=== PATIENT | female | born 1995 | race Caucasian/White ===

== ENCOUNTER 2017-03-25 18:44 | Outpatient (CLI) | payer OTHER ==
[~2017-03-25] VITALS: Ht 154.9 cm; Wt 61.0 kg
[2017-03-25 19:03] VITALS: Ht 154.9 cm; Wt 61.0 kg
[2017-03-25] MEDS ORDERED: CALC-5 PO (19:03)
[2017-03-25] MEDS ORDERED: PREN-47 PO (19:03)
[2017-03-25] MEDS ORDERED: FER325 PO (19:03)
[2017-03-25] MEDS ORDERED: FOLI-49 PO (19:03)
[2017-03-25 19:04] VITALS: BP 112/65; PULSE 145; RESP 18
[2017-03-25] MEDS ORDERED: LACTATED RINGER'S 1,000 ML IV ONE (20:30)
[2017-03-25 21:00] LABS: ABNORMAL IP MESSAGE 1; BASOPHILS % 0.2 % (0.0-2.0); EOSINOPHILS % 0.1 % (0.0-7.0); HEMATOCRIT 35.9 % (37.0-47.0); HEMOGLOBIN 11.9 g/dl (12.0-16.0); LYMPHOCYTES # 0.9 10^3/ul (0.8-2.9); LYMPHOCYTES % 7.2 % (18.0-55.0); MEAN CORPUSCULAR HEMOGLOBIN 29.2 pg (29.0-33.0); MEAN CORPUSCULAR HGB CONC 33.1 g/dl (32.0-37.0); MEAN PLATELET VOLUME 13.2 fl (7.4-10.4); MONOCYTE # 0.6 10^3/ul (0.3-0.9); MONOCYTES % 4.9 % (0.0-13.0); NEUTROPHIL # 10.9 10^3/ul (1.6-7.5); PLATELET COUNT 127 10^3/UL (140-415); RED BLOOD COUNT 4.08 10^6/ul (4.20-5.40); RED CELL DISTRIBUTION WIDTH 13.7 % (11.5-14.5); WHITE BLOOD COUNT 12.5 10^3/ul (4.8-10.8)
[2017-03-25 21:01] LABS: POSITIVE DIFF @See below
[2017-03-25 21:13] LABS: ADD UMIC YES; UR ASCORBIC ACID 40 mg/dL (NEGATIVE); UR BACTERIA FEW /HPF (NONE SEEN); UR BILIRUBIN (Dip) NEGATIVE (NEGATIVE); UR BLOOD (Dip) NEGATIVE (NEGATIVE); UR CLARITY CLOUDY (CLEAR); UR COLOR YELLOW (YELLOW); UR GLUCOSE (Dip) NEGATIVE (NEGATIVE); UR KETONES (Dip) 2+ mg/dL (NEGATIVE); UR LEUKOCYTE ESTERASE (Dip) 2+ Leu/ul (NEGATIVE); UR MUCUS MODERATE /HPF (NONE SEEN); UR NITRITE (Dip) NEGATIVE (NEGATIVE); UR RBC 2 /HPF (0-5); UR SPECIFIC GRAVITY (Dip) 1.017 (1.003-1.030); UR SQUAMOUS EPITHELIAL CELL MANY /HPF (FEW); UR TOTAL PROTEIN (Dip) NEGATIVE (NEGATIVE); UR UROBILINOGEN (Dip) NEGATIVE (NEGATIVE)
[2017-03-25] MEDS ORDERED: CEFAZOLIN 2 GM/50 ML (PMX) 50 ML IVPB ONE (22:00)
[2017-03-25] MEDS ORDERED: ACETAMINOPHEN 1000MG/100ML IV 100 ML IVPB ONE (22:00)
--- NOTE | 2017-03-26 00:09 | PN ---
Triage Information Date/Time Mar 26, 2017 Reason for visit: Uterine contractions Weeks of Gestation 36w 2d /Para 2/0 Diabetes: none Hypertention: none Additional information PMHx: none. PSHx: none. NKDA. Objective Vital Signs Date Time Temp Pulse Resp B/P Pulse Ox O2 Delivery O2 Flow Rate FiO2 03/25/17 19:04 100.0 145 18 112/65 98 Room Air Intake and Output 03/25/17 03/25/17 03/26/17 15:00 23:00 07:00 Intake Total 1150 ml Balance 1150 ml Heart Rate: 150's Heart Rate Comments With good accels and no decels. Contractions: None Results/Medications Result Diagram: 03/25/172024 Results 24 hrs Laboratory Tests Test 03/25/17 20:25 White Blood Count 12.5 H Red Blood Count 4.08 L Hemoglobin 11.9 L Hematocrit 35.9 L Mean Corpuscular Volume 88.0 Mean Corpuscular Hemoglobin 29.2 Mean Corpuscular Hemoglobin Concent 33.1 Red Cell Distribution Width 13.7 Platelet Count 127 L Mean Platelet Volume 13.2 H Neutrophils % 87.0 H Lymphocytes % 7.2 L Monocytes % 4.9 Eosinophils % 0.1 Basophils % 0.2 Nucleated Red Blood Cells % 0.0 Neutrophils # 10.9 H Lymphocytes # 0.9 Monocytes # 0.6 Eosinophils # 0.0 Basophils # 0.0 Nucleated Red Blood Cells # 0.0 Urine Color YELLOW Urine Clarity CLOUDY A Urine pH 6.0 Urine Specific [place] 1.017 Urine Ketones 2+ H Urine Nitrite NEGATIVE Urine Bilirubin NEGATIVE Urine Urobilinogen NEGATIVE Urine Leukocyte Esterase 2+ H Urine Microscopic RBC 2 Urine Microscopic WBC 12 H Urine Squamous Epithelial Cells MANY A Urine Bacteria FEW A Urine Mucus MODERATE Urine Hemoglobin NEGATIVE Urine Glucose NEGATIVE Urine Total Protein NEGATIVE Disposition: Discharge Assessment/Plan A: IUP at 36w 2d. Maternal and tachycardia. UTI. P: IV hydration. IV Ancef x 1. IV Tylenol x 1. After all of the above the pt's heart rate went from 140's to 110 bpm. Home with Rx for Macrobid. Urine cx. DIO PFEIFFER MD Mar 26, 2017 00:09
--- NOTE | 2017-03-26 00:31 | TRIAGE ---
OB Triage Datetime Report Generated by CPN: 03/26/2017 00:31 Datetime: 03/25/2017 23:00 Labor Evaluation Frequency: 7-8 Monitor Mode: External Duration (sec)2399: 60-70 Pattern: Normal: <= 5 Contractions in 10 Minutes Heart Rate FHR Baseline Rate: 155 Monitor Mode: External US FHR Baseline Changes: No Baseline Change Variability: Moderate 6-25 bpm Accelerations: 15X15 Datetime: 03/25/2017 22:22 Pain Assessment Pain Scale: 2 Pain Presence: Intermittent Pain Type: Cramping Pain Location: Back Pain Goal: 0 Pain Relief Measures: Comfort Measures Pain Assessment Comments: pt. states she feels 'better' and isn't really feeling uterine contracti ons anymore. pt. appears comfortable, does not desire and verbalize any needs at this time Datetime: 03/25/2017 22:00 Labor Evaluation Frequency: 8-9 Monitor Mode: External Duration (sec)2399: 60-80 Pattern: Normal: <= 5 Contractions in 10 Minutes Heart Rate FHR Baseline Rate: 160 Monitor Mode: External US FHR Baseline Changes: No Baseline Change Variability: Moderate 6-25 bpm Accelerations: 15X15 Decelerations: None Datetime: 03/25/2017 21:00 Labor Evaluation Frequency: 4-6 Monitor Mode: External Duration (sec)2399: 50-80 Pattern: Normal: <= 5 Contractions in 10 Minutes Heart Rate FHR Baseline Rate: 160 Monitor Mode: External US FHR Baseline Changes: No Baseline Change Variability: Moderate 6-25 bpm Accelerations: 15X15 Decelerations: Variable Datetime: 03/25/2017 20:00 Labor Evaluation Frequency: 4-8 Monitor Mode: External Duration (sec)2399: 60-80 Pattern: Normal: <= 5 Contractions in 10 Minutes Heart Rate FHR Baseline Rate: 160 Monitor Mode: External US FHR Baseline Changes: No Baseline Change Variability: Moderate 6-25 bpm Accelerations: 15X15 Decelerations: Variable Datetime: 03/25/2017 19:40 Monitor Mode: Palpation Resting Tone [place]: Relaxed Datetime: 03/25/2017 19:39 Vaginal Exam Dilatation (cms): 1.0 Effacement (%): 30 Station: -3 Exam By: jyothi rico Vaginal Bleeding: None Cervix, Consistency: Moderate Cervix, Position: Posterior Presentation 'A': Cephalic Datetime: 03/25/2017 19:32 Stage of : OB Triage Maternal Assessment Level of Consciousness: Fully Conscious Headache: Denies Blurred Vision: No Respiratory Effort: Unlabored; Regular Rhythm; Equal Expansion Nausea/Vomiting: Denies RUQ Epigastric Pain: Denies Facial Edema: None Fall Risk Assessment History of Falling: (0) No Secondary Diagnosis: (0) No Ambulatory Aid: (0) Bedrest/Nurse Assist IV Therapy: (0) No Gait: (0) Normal/Bedrest/Immobile Mental Status: (0) Oriented to Own Ability Fall Score: 0 Fall Risk Score Definition: No Risk: No action required Datetime: 03/25/2017 19:00 Assessment Type: Triage Maternal Assessment Level of Consciousness: Fully Conscious DTR's/Clonus: DTRs 2+; No Clonus Headache: Denies Blurred Vision: No Respiratory Effort: Unlabored; Regular Rhythm; Equal Expansion Breath Sounds, Left: Clear and Equal Breath Sounds, Right: Clear and Equal Nausea/Vomiting: Denies RUQ Epigastric Pain: Denies Lower Extremities Edema: None Degree: None Upper Extremities Edema: None Degree: None Facial Edema: None Fall Risk Assessment History of Falling: (0) No Secondary Diagnosis: (0) No Ambulatory Aid: (0) Bedrest/Nurse Assist IV Therapy: (0) No Gait: (0) Normal/Bedrest/Immobile Mental Status: (0) Oriented to Own Ability Fall Score: 0 Fall Risk Score Definition: No Risk: No action required Datetime: 03/25/2017 18:58 Time of Arrival: 03/25/2017 18:35 EGA: 36.1 Arrived By: Ambulatory Arrived From: Home Chief Complaint: pt here c/o UC'S SINCE THIS AM Movement: Present Contractions: Irregular Rupture of Membranes: Denies Vaginal Bleeding: None Vaginal Discharge: Denies Recent Sexual Intercouse: Denies Abdominal Trauma: Not Applicable Patient Complaints: Contractions; Cramping; Back Pain Provider Notified: MEGHAN Datetime: 03/25/2017 18:54 Monitor Mode: External Monitor Mode: External US
== END 2017-03-26 00:43 | disposition home or self-care (01) ==
LOC: OBT 18:44 → L-D 18:48 → OBT 03-26 00:43
PROVIDERS: ATTEND Obstetrics & Gynecology
DX: O62.9 Abnormality of forces of labor, unspecified (principal); Z3A.36 36 weeks gestation of pregnancy
CPT/HCPCS: 36415; 81001; 85025; 87086; 96360; 96365; 96374; J0131; J0690; J7120; Z7500; G0463

== ENCOUNTER 2017-03-27 15:40 | Inpatient (IN) | payer OTHER ==
[~2017-03-27 15:40] MED LIST: CALC-5 PO; FER325 PO; FOLI-49 PO; PREN-47 PO
--- NOTE | 2017-03-27 17:51 | RADRPT ---
PROCEDURE: OB ultrasound CLINICAL INDICATION: Contractions TECHNIQUE: Multiple transverse and longitudinal OB images of the pelvis were obtained. The images were reviewed on a high-resolution PACS workstation. COMPARISON: None FINDINGS: A single live intrauterine is seen. The presentation is vertex. The placenta is grade 2-3 and fundal in location. No evidence of placenta abruption or previa is seen. The heart rate i s 156 beats per minute. The amniotic fluid index is 8.7 cm. movement 2 tone 2 breathing 2 Amniotic fluid 2 IMPRESSION: Biophysical profile of 01/28. RPTAT: HPNM Physician Brandie Date Time Electronically viewed and signed by Physician Brandie on 03/27/2017 17:51 /
[2017-03-27] MEDS ORDERED: AMPICILLIN 2 GM/NS (PMX) 100 ML IV ONE (20:30)
[2017-03-27] MEDS ORDERED: BUTORPHANOL 2 MG INJ IV PRN (20:30)
[2017-03-27] MEDS ORDERED: CARBOPROST 250 MCG INJ IM PRN (20:30)
[2017-03-27] MEDS ORDERED: OXYTOCIN 30 UNITS/LR 500 ML IV SCH ×3 (20:30)
[2017-03-27] MEDS ORDERED: IBUPROFEN 600 MG TAB PO PRN (20:30)
[2017-03-27] MEDS ORDERED: OXYTOCIN 30 UNITS/LR 500 ML IV PRN (20:30)
[2017-03-27] MEDS ORDERED: MISOPROSTOL 200 MCG TAB PR PRN (20:30)
[2017-03-27] MEDS ORDERED: LIDOCAINE 1% (MPF) 30 ML INJ INJ PRN (20:30)
[2017-03-27] MEDS ORDERED: METHYLERGONOVINE 0.2 MG INJ IM PRN (20:30)
--- NOTE | 2017-03-27 20:54 | TRIAGE ---
OB Triage Datetime Report Generated by CPN: 03/27/2017 20:54 Datetime: 03/27/2017 19:27 Membrane Status: Ruptured Datetime: 03/27/2017 19:21 Assessment Type: Triage Datetime: 03/27/2017 19:17 Frequency: 0 Monitor Mode: External Duration (sec)2399: 0 Resting Tone [place]: Relaxed FHR Baseline Rate: 140 Monitor Mode: External US Variability: Moderate 6-25 bpm Accelerations: 15X15 Decelerations: None Category: Category I Comments: still waiting for the rom+ report lab states "10 monre min" report to e myrna Datetime: 03/27/2017 17:29 Level of Consciousness: Fully Conscious DTR's/Clonus: DTRs 2+ Headache: Denies Blurred Vision: No Nausea/Vomiting: Denies RUQ Epigastric Pain: Denies Facial Edema: None Frequency: 2-4 Monitor Mode: External Duration (sec)2399: 10-20 Quality: Mild Pattern: Normal: <= 5 Contractions in 10 Minutes Resting Tone [place]: Relaxed FHR Baseline Rate: 150 Monitor Mode: External US Variability: Moderate 6-25 bpm Accelerations: 15X15 Decelerations: None Category: Category I Pain Scale: 0 Pain Presence: None/Denies Pain Type: N/A Pain Goal: 3 Pain Relief Measures: Comfort Measures Pain Assessment Comments: doesn't feel any uc's Membrane Status: Intact Datetime: 03/27/2017 16:18 Stage of : OB Triage Assessment Type: Triage Level of Consciousness: Fully Conscious DTR's/Clonus: DTRs 2+; No Clonus Headache: Denies Blurred Vision: No Respiratory Effort: Unlabored; Regular Rhythm; Equal Expansion Breath Sounds, Left: Clear and Equal Breath Sounds, Right: Clear and Equal Nausea/Vomiting: Denies RUQ Epigastric Pain: Denies Lower Extremities Edema: None Upper Extremities Edema: None Facial Edema: None Temperature Route: Oral History of Falling: (0) No Secondary Diagnosis: (0) No Ambulatory Aid: (0) Bedrest/Nurse Assist IV Therapy: (0) No Gait: (0) Normal/Bedrest/Immobile Mental Status: (0) Oriented to Own Ability Fall Score: 0 Fall Risk Score Definition: No Risk: No action required Monitor Mode: External FHR Baseline Rate: 140 Monitor Mode: External US Pain Scale: 0 Pain Presence: None/Denies Pain Type: N/A Pain Goal: 3 Pain Relief Measures: Comfort Measures Datetime: 03/27/2017 16:12 Time of Arrival: 03/27/2017 15:34 EGA: 36.3 Arrived By: Ambulatory Arrived From: Home Chief Complaint: leaking since yesterday (03/26/17) Movement: Present Contractions: Denies/Absent Rupture of Membranes: Unsure Vaginal Bleeding: None Vaginal Discharge: Denies Recent Sexual Intercouse: Denies Abdominal Trauma: Not Applicable Patient Complaints: None Time Provider Notified: 03/27/2017 16:30 Provider Notified: kathy Initial Plan: jordit, v/s, call jhony li dr, Datetime: 03/25/2017 18:58 Time Provider Notified: 03/26/2017 20:13
--- NOTE | 2017-03-27 20:59 | HP ---
Date/Time of Note Date/Time of Note DATE: 03/27/17 TIME: 20:51 OB - History Hx of Present Free Text/Dictation 21y,o primigravida here at triage with c/o leaking fluid since 1230 03/26/17 without any c/o uterine contractions, GBS neg 1hr GTT abn f/b 3hr GTT neg ROM plus pos with vaginal pooling pos admitted for delivery with pitocin Chief Complaint: srom Estimated Due Date: Apr 21, 2017 : 1 Para: 0 Spontaneous : 0 Therapeutic : 0 Care: Other (late entry) Ultrasounds: Normal mid trimester US Obstetrical Complications: None Medical Complications: None Past Family/Social History * Past Medical, Surgical, Family and Obstetric Histories reviewed from chart. Blood Type: O+ Rubella: immune RPR/VDRL: Negative GBS Status: Negative HBsAG: Negative OB Admission Exam Physical Exam HEENT: WNL Heart: Rhythm Normal Lungs: Clear, Equal Abdomen: WNL Extremities: Normal Reflexes: Normal Membranes: Ruptured Amniotic Fluid: Clear Heart Rate: 140's Accelerations: Accelerations Present Decelerations: No Decelerations Varibility: Moderate Contractions on Admission: None OB Assessment/Plan Reason for admission: rupture of membranes Other Assessment: IUP 36w3d PROM Plan: Induction Induction Method: per Pitocin Protocol MAYE ORTIZ MD Mar 27, 2017 20:59
[2017-03-27] MEDS: LACTATED RINGER'S 1,000 ML IV SCH (22:16)
[2017-03-27 22:30] VITALS: BP 117/58; PULSE 84; RESP 16
[2017-03-27 22:46] LABS: BASOPHILS % 0.1 % (0.0-2.0); EOSINOPHILS # 0.1 10^3/ul (0.0-0.5); EOSINOPHILS % 0.8 % (0.0-7.0); HEMATOCRIT 34.8 % (37.0-47.0); HEMOGLOBIN 11.7 g/dl (12.0-16.0); LYMPHOCYTES # 1.8 10^3/ul (0.8-2.9); MEAN CORPUSCULAR HGB CONC 33.6 g/dl (32.0-37.0); MEAN CORPUSCULAR VOLUME 89.2 fl (72.0-104.0); MEAN PLATELET VOLUME 12.6 fl (7.4-10.4); MONOCYTE # 0.6 10^3/ul (0.3-0.9); MONOCYTES % 7.2 % (0.0-13.0); NEUTROPHIL # 6.2 10^3/ul (1.6-7.5); NEUTROPHILS % 70.4 % (30.0-74.0); PLATELET COUNT 121 10^3/UL (140-415); RED CELL DISTRIBUTION WIDTH 13.6 % (11.5-14.5); WHITE BLOOD COUNT 8.8 10^3/ul (4.8-10.8)
[2017-03-27] MEDS ORDERED: LACTATED RINGER'S 1,000 ML IV PRN (23:00)
[2017-03-27 23:03] LABS: INR 0.93; PROTIME 12.5 Sec (12.2-14.2)
[2017-03-27 23:04] LABS: PARTIAL THROMBOPLASTIN TIME 29.5 Sec (25.0-35.0)
[2017-03-28] MEDS ORDERED: CEFTRIAXONE 1 GM/50 ML (PMX) 50 ML IVPB SCH (01:00)
[2017-03-28] MEDS ORDERED: SOD CHLORIDE 0.9% 1,000 ML IV SCH (01:00)
[2017-03-28] MEDS: AMPICILLIN 1 GM/NS (PMX) 50 ML IV SCH ×4 (03:01→14:37)
[2017-03-28] MEDS ORDERED: DIPHENHYDRAMINE 50 MG INJ IV PRN (06:00)
[2017-03-28] MEDS ORDERED: NALOXONE (0.4 MG/ML) INJ IV PRN (06:00)
[2017-03-28] MEDS ORDERED: FENTAnyl 2MCG/ML-ROPIV 0.2% 100 ML BAG EPI SCH (06:00)
[2017-03-28] MEDS ORDERED: ONDANSETRON 4 MG INJ IV PRN (06:00)
[2017-03-28] MEDS: LACTATED RINGER'S 1,000 ML IV SCH ×3 (06:23→10:17)
--- NOTE | 2017-03-28 15:15 | LDN ---
Date/Time of Note Date/Time of Note DATE: 03/28/17 TIME: 15:14 Delivery Summary NSD W/O COMPLICATIONS Placenta Delivered: Spontaneously Meconium: none Episiotomy: No Perineal laceration: 1 Anesthesia type: Epidural Estimated blood loss: 300 Sponge & Needle done & correct: Yes All needle counts correct: Yes Any foreign bodies felt in the: No Problems: PRATIK CHRISTIANSON MD Mar 28, 2017 15:15
[2017-03-28 16:45] VITALS: BP 138/77; PULSE 70; RESP 18
[2017-03-28 17:30] VITALS: BP 128/65; PULSE 70; RESP 16
[2017-03-28] MEDS ORDERED: MISOPROSTOL 200 MCG TAB PR PRN (18:00)
[2017-03-28] MEDS ORDERED: ZOLPIDEM 5 MG TAB PO PRN (18:00)
[2017-03-28] MEDS ORDERED: WITCH HAZEL/GLYCERIN PAD PR PRN (18:00)
[2017-03-28] MEDS ORDERED: LANOLIN 7 GM TUBE TOP PRN (18:00)
[2017-03-28] MEDS ORDERED: HYDROCODONE/APAP (5/325) TAB PO PRN (18:00)
[2017-03-28] MEDS ORDERED: ACETAMINOPHEN 325 MG TAB PO PRN (18:00)
[2017-03-28] MEDS ORDERED: DIPHENHYDRAMINE 25 MG CAP PO PRN (18:00)
[2017-03-28] MEDS ORDERED: OXYTOCIN 30 UNITS/LR 500 ML IV PRN (18:00)
[2017-03-28] MEDS ORDERED: BENZOCAINE 20% 56 ML SPRAY TOP PRN (18:00)
[2017-03-28] MEDS ORDERED: METHYLERGONOVINE 0.2 MG INJ IM PRN (18:00)
[2017-03-28] MEDS ORDERED: MAGNESIUM HYDROXIDE 30ML CUP PO PRN (18:00)
[2017-03-28] MEDS: IBUPROFEN 800 MG TAB PO SCH ×2 (18:00→23:45)
[2017-03-28] MEDS: SENNA/DOCUSATE NA (8.6MG/50MG) TAB PO PRN (18:00)
[2017-03-28] MEDS ORDERED: CARBOPROST 250 MCG INJ IM PRN (18:00)
[2017-03-28] MEDS: OXYTOCIN 30 UNITS/LR 500 ML IV SCH ×2 (18:31→21:37)
[2017-03-28 19:50] VITALS: BP 105/54; PULSE 78; RESP 19
[2017-03-28] MEDS: LACTATED RINGER'S 1,000 ML IV* SCH (22:49)
[2017-03-29 00:10] VITALS: BP 110/61; PULSE 76; RESP 19
[2017-03-29] MEDS: LACTATED RINGER'S 1,000 ML IV* SCH ×2 (01:37→09:37)
[2017-03-29 04:05] VITALS: BP 102/58; PULSE 70; RESP 18
[2017-03-29] MEDS: IBUPROFEN 800 MG TAB PO SCH ×4 (05:30→23:46)
[2017-03-29 07:07] LABS: BASOPHILS % 0.2 % (0.0-2.0); EOSINOPHILS # 0.1 10^3/ul (0.0-0.5); EOSINOPHILS % 0.9 % (0.0-7.0); HEMATOCRIT 31.3 % (37.0-47.0); HEMOGLOBIN 10.3 g/dl (12.0-16.0); LYMPHOCYTES # 2.1 10^3/ul (0.8-2.9); LYMPHOCYTES % 16.6 % (18.0-55.0); MEAN CORPUSCULAR HEMOGLOBIN 29.3 pg (29.0-33.0); MEAN CORPUSCULAR HGB CONC 32.9 g/dl (32.0-37.0); MEAN CORPUSCULAR VOLUME 88.9 fl (72.0-104.0); MEAN PLATELET VOLUME 12.5 fl (7.4-10.4); MONOCYTE # 0.9 10^3/ul (0.3-0.9); MONOCYTES % 6.9 % (0.0-13.0); NEUTROPHIL # 9.5 10^3/ul (1.6-7.5); NEUTROPHILS % 74.8 % (30.0-74.0); PLATELET COUNT 115 10^3/UL (140-415); RED BLOOD COUNT 3.52 10^6/ul (4.20-5.40); RED CELL DISTRIBUTION WIDTH 13.6 % (11.5-14.5); WHITE BLOOD COUNT 12.7 10^3/ul (4.8-10.8)
[2017-03-29 08:30] VITALS: BP 105/51; PULSE 74; RESP 18
[2017-03-29] MEDS: SENNA/DOCUSATE NA (8.6MG/50MG) TAB PO PRN ×2 (08:51→21:01)
--- NOTE | 2017-03-29 11:35 | QN ---
Documentation Comment PPD#1 is stable afebrile No VB +BM +voids VS stable Gen NAD Abd soft NT ND Genitalia No blood at perinium --->discharge plan tomorrow LAURE MOLINA M.D. Mar 29, 2017 11:35
--- NOTE | 2017-03-29 11:37 | DS ---
Date/Time of Note Date/Time of Note DATE: 03/29/17 TIME: 11:36 Discharge Summary Admission/Discharge Info Admit Date/Time Mar 27, 2017 at 20:00 Discharge Date/Time Mar Discharge Diagnosis Patient Condition: Good Hospital Course uneventful Home Meds Reported Medications Ferrous Sulfate* (Ferrous Sulfate*) 325 Mg Tabec, 325 MG PO DAILY, TAB 03/25/17 Calcium Carbonate/Vitamin D2 (Calcium Oys Shell 250 mg Tab) 1 Each Tablet, 1 EACH PO DAILY, TAB 03/25/17 Folic Acid* (Folic Acid*) 1 Mg Tablet, 1 MG PO DAILY, TAB 03/25/17 [id number] Acid ([place] Chewable) 1 Each Tab.chew, 1 TAB PO DAILY, TAB.CHEW 03/25/17 Primary Care Provider Care Physician No Primary Pending Labs Laboratory Tests Test 03/29/17 06:41 White Blood Count 12.710^3/ul (4.8-10.8) Red Blood Count 3.5210^6/ul (4.20-5.40) Hemoglobin 10.3g/dl (12.0-16.0) Hematocrit 31.3% (37.0-47.0) Mean Corpuscular Volume 88.9fl (72.0-104.0) Mean Corpuscular Hemoglobin 29.3pg (29.0-33.0) Mean Corpuscular Hemoglobin Concent 32.9g/dl (32.0-37.0) Red Cell Distribution Width 13.6% (11.5-14.5) Platelet Count 75238^3/UL (140-415) Mean Platelet Volume 12.5fl (7.4-10.4) Neutrophils % 74.8% (30.0-74.0) Lymphocytes % 16.6% (18.0-55.0) Monocytes % 6.9% (0.0-13.0) Eosinophils % 0.9% (0.0-7.0) Basophils % 0.2% (0.0-2.0) Nucleated Red Blood Cells % 0.0/100WBC (0.0-0.0) Neutrophils # 9.510^3/ul (1.6-7.5) Lymphocytes # 2.110^3/ul (0.8-2.9) Monocytes # 0.910^3/ul (0.3-0.9) Eosinophils # 0.110^3/ul (0.0-0.5) Basophils # 0.010^3/ul (0.0-0.1) Nucleated Red Blood Cells # 0.010^3/ul (0.0-0.0) LAURE MOLINA M.D. Mar 29, 2017 11:37
[2017-03-29] MEDS ORDERED: INFLUENZA VIRUS VACCINE 0.5 ML SYG IM* ONE (12:00)
[2017-03-29 12:24] VITALS: BP 110/55; PULSE 86; RESP 18
[2017-03-29 16:25] VITALS: BP 113/53; PULSE 80; RESP 18
[2017-03-29 19:30] VITALS: BP 100/59; PULSE 76; RESP 18
[2017-03-30 04:00] VITALS: BP 115/64; PULSE 80; RESP 18
[2017-03-30] MEDS: IBUPROFEN 800 MG TAB PO SCH ×3 (05:48→17:29)
[2017-03-30 07:30] VITALS: BP 112/53; PULSE 72; RESP 18
[2017-03-30] MEDS ORDERED: VARICELLA VACCINE LIVE/PF 1,350 UNIT/0.5 ML ML SC* ONE (09:00)
[2017-03-30] MEDS ORDERED: DIPHTH/TET/ACEL PERTUSS (ADULT) 0.5 ML VIAL IM* ONE (09:00)
[2017-03-30] MEDS ORDERED: MEASLES,MUMPS,RUBELLA VACCINE INJ SC* ONE (09:00)
[2017-03-30] MEDS: SENNA/DOCUSATE NA (8.6MG/50MG) TAB PO PRN (12:04)
[2017-03-30 16:00] VITALS: BP 119/60; PULSE 78; RESP 18
== END 2017-03-30 18:10 | disposition home or self-care (01) | DRG 775 ==
LOC: OBT 15:40 → L-D 15:43 → OBT 20:00 → L-D 20:00 → PP1 03-28 17:29
PROVIDERS: ADMIT Obstetrics & Gynecology; ATTEND Obstetrics & Gynecology
PROC: 10E0XZZ Delivery of Products of Conception, External Approach (ICD-10-PCS; principal; 2017-03-28)
PROC: 3E0P3VZ Introduction of Hormone into Female Reproductive, Percutaneous Approach (ICD-10-PCS; 2017-03-28)
DX: O60.14X0 Preterm labor third trimester with preterm delivery third trimester, not applicable or unspecified (principal); Z37.0 Single live birth; Z3A.36 36 weeks gestation of pregnancy
CPT/HCPCS: 36415; 62319; 76818; 84112; 85025; 85610; 85730; 86592; 86900; 86901; 87340; 90686; 90715; 90716; 96360; 96361; G0463; J0290; J0696; J2590; J3010; J7030; J7120

== ENCOUNTER 2018-04-12 00:32 | Emergency (ER) | END 2018-04-12 03:30 | disposition home or self-care (01) ==